=== PATIENT | female | born 1970 | race Caucasian/White ===

== ENCOUNTER 2021-04-02 17:31 | Inpatient (IN) ==
--- NOTE | 2021-04-02 18:33 | XRay Report ---
XR chest 1V portable CLINICAL HISTORY: SOB. COMPARISON STUDY: No previous studies for comparison. TECHNIQUE: 1 view of the chest FINDINGS: Single frontal view of the chest demonstrates the cardiomediastinal silhouette to be within normal li mits. Minimal patchy interstitial and alveolar opacities are present bilaterally, left greater than r ight. The findings are most characteristic of a viral type pneumonitis. Covid 19 pneumonia should be excluded. There is no evidence for pleural effusion. There is no evidence for vascular congestion. Th ere is no acute osseous pathology. IMPRESSION: Minimal patchy interstitial and alveolar opacities bilaterally, left greater than right, characteristic of a viral type pneumonitis and probable early Covid 19 pneumonia. ACT 112: Negative or not required by law. Electronically signed by: Long Lanza M.D. 04/02/2021 6:31 PM
[2021-04-02 19:28] LABS: Basophils # (auto) 0.02 K/uL (0-0.2); Basophils % (auto) 0.3 %; Eosinophils # (auto) 0.03 K/uL (0-0.5); Eosinophils % (auto) 0.4 %; Hemoglobin 14.1 g/dL (12.0-16.0); Immature Granulocytes # (auto) 0.02 K/uL (0.00-0.02); Immature Granulocytes % (auto) 0.3 %; Lymphocytes # (auto) 1.67 K/uL (1.2-3.4); Lymphocytes % (auto) 21.9 %; Mean Corpuscular Hemoglobin 28.5 pg (25-34); Mean Corpuscular Hgb Conc 33.6 g/dL (32-36); Monocytes # (auto) 0.52 K/uL (0.11-0.59); Monocytes % (auto) 6.8 %; Neutrophils # (auto) 5.35 K/uL (1.4-6.5); Neutrophils % (auto) 70.3 %; Platelet Count 272 K/uL (130-400); RDW Coefficient of Variation 14.2 % (11.5-14.5); RDW Standard Deviation 43.5 fL (36.4-46.3); Red Blood Count 4.94 M/uL (4.2-5.4); White Blood Count 7.61 K/uL (4.8-10.8)
--- NOTE | 2021-04-02 19:43 | Emergency Department Note ---
History of Present Illness General Chief complaint: Shortness of Breath/Dyspnea Stated complaint: ABNORMAL LABS Time Seen by Provider: 04/02/21 19:01 History of Present Illness 51-year-old female presents to the ED with a chief complaint of some chest tightness and some shortness of breath that is worse with exertion. She has had the symptoms since Tuesday. The patient first went to a local urgent care and had a positive D-dimer and was sent here for further evaluation. She denies a cough or cold symptoms. She does report a history of PE in the past. Currently not on anticoagulation. No additional complaints this time. Home Medications Medication Instructions Recorded Confirmed Type escitalopram oxalate 10 mg tablet 10 mg PO QPM 04/02/21 04/02/21 History multivitamin 1 tab PO QPM 04/02/21 04/02/21 History pantoprazole 40 mg tablet,delayed 40 mg PO QPM 04/02/21 04/02/21 History release valacyclovir 500 mg tablet 500 mg PO QPM 04/02/21 04/02/21 History Allergies Allergy/AdvReac Type Severity Reaction Status Date / Time No Known Allergies Allergy Unknown Verified 04/02/21 19:28 Past Med/Surg History Social History Smoking Status: Never smoker Preferred Language: Icelandic Feels Safe at Home: Yes Review of Systems A total of 10 systems reviewed and were otherwise negative Physical Exam Vital Signs Vital Signs - 24 hr 04/02/21 17:58 04/02/21 19:10 04/02/21 19:11 Temperature 36.8 C Temperature Source Temporal Artery Scan Pulse Rate 118 H Pulse Rate [Right Finger] Pulse Rate from SpO2 Sensor Pulse Rhythm Regular Pulse Rhythm [Right Finger] Pulse Strength [Right Finger] Respiratory Rate 18 Respiratory Effort / Characteristics Non-Labored Spontaneous Non-Labored Respiratory Depth Normal Respiratory Pattern Blood Pressure 147/88 H Blood Pressure [Right Arm] Blood Pressure Mean 107 Blood Pressure Mean [Right Arm] Blood Pressure Position Sitting Blood Pressure Position [Right Arm] Pulse Oximetry 97 92 Oxygen Delivery Method Room Air Room Air Sepsis Recent Fever Within 48 Hours No Sepsis New/Unexplained Change in Mental Status No Sepsis Action Taken by Nursing No Action Required 04/02/21 19:23 04/02/21 19:40 Temperature Temperature Source Pulse Rate 102 H 100 H Pulse Rate [Right Finger] 107 H Pulse Rate from SpO2 Sensor 98 H Pulse Rhythm Regular Pulse Rhythm [Right Finger] Regular Pulse Strength [Right Finger] Normal Respiratory Rate 18 18 Respiratory Effort / Characteristics Non-Labored Spontaneous Respiratory Depth Normal Respiratory Pattern Regular Blood Pressure 157/104 H Blood Pressure [Right Arm] 167/109 H Blood Pressure Mean 121 Blood Pressure Mean [Right Arm] 128 Blood Pressure Position Blood Pressure Position [Right Arm] Sitting Pulse Oximetry 98 96 Oxygen Delivery Method Room Air Sepsis Recent Fever Within 48 Hours Sepsis New/Unexplained Change in Mental Status Sepsis Action Taken by Nursing CONSTITUTIONAL/VITAL SIGNS: Reviewed / noted above. GENERAL: Non-toxic in appearance. INTEGUMENTARY: Warm, dry, and [place]. HEAD: Normocephalic. EYES: without scleral icterus or trauma. ENT/OROPHARYNX: clear and moist. LYMPHADENOPATHY/NECK: Is supple without lymphadenopathy or meningismus. RESPIRATORY: Clear to auscultation bilaterally. No increased work of breathing. CARDIOVASCULAR: Regular rate and rhythm. GI/ABDOMEN: Soft and nontender. No organomegaly or pulsatile mass. EXTREMITIES: Warm and well perfused. BACK: No CVA tenderness. NEUROLOGICAL: Intact without focal deficits. PSYCHIATRIC: normal affect. MUSCULOSKELETAL: Normally developed with good muscle tone. TRIAGE NURSING DOCUMENTATION REVIEWED. Course Administered Medications Discontinued Medications Acetaminophen (Acetaminophen 325 Mg Tab) 650 mg PO NOW STA Stop: 04/02/21 20:19 Last Admin: 04/02/21 20:28 Dose: 650 mg Documented by: [id number] Ioversol (Optiray 320 125ml) 117 ml IV ONCE ONE Stop: 04/02/21 20:12 Last Admin: 04/02/21 20:12 Dose: 117 ml Documented by: [id number] Critical Care Time Critical Care Time: Yes Total Critical Care Time: 30 I have personally spent 30 minutes of critical care time in the direct management of this patient. This includes bedside care, interpretation of diagnostic studies, and testing, discussion with consultants, patient, and family members, and other required patient management activities. This 30 minutes is in excess of all separately billable procedures. Medical Decision Making Differential Diagnosis The differential that was considered includes acute myocardial infarction, acute coronary syndrome, myocarditis, pericarditis, pericardial effusions /tamponade, esophageal perforation, thoracic aortic dissection, pulmonary embolism, pneumonia, pneumothorax, pancreatitis, shingles, acute cholecystitis, perforated abdominal viscus. Medical Records Attestation: I reviewed the patient's medical records. Home Medications Current Medication List: was personally reviewed by me Laboratory Data Attestation: I reviewed the patient's lab results. Result diagrams: 04/02/21 18:59 04/02/21 18:59 Lab Results 04/02/21 04/02/21 04/02/21 Range/Units 18:59 18:59 18:59 WBC 7.61 (4.8-10.8) K/uL RBC 4.94 (4.2-5.4) M/uL Hgb 14.1 (12.0-16.0) g/dL Hct 42.0 (37-47) % MCV 85.0 (80-100) fL MCH 28.5 (25-34) pg MCHC 33.6 (32-36) g/dL RDW Std Deviation 43.5 (36.4-46.3) fL RDW Coeff of Simone 14.2 (11.5-14.5) % Plt Count 272 (130-400) K/uL MPV 10.0 (7.4-10.4) fL Immature Gran % (Auto) 0.3 % Neut % (Auto) 70.3 % Lymph % (Auto) 21.9 % [place] % (Auto) 6.8 % Eos % (Auto) 0.4 % Baso % (Auto) 0.3 % Neut # (Auto) 5.35 (1.4-6.5) K/uL Lymph # (Auto) 1.67 (1.2-3.4) K/uL [place] # (Auto) 0.52 (0.11-0.59) K/uL Eos # (Auto) 0.03 (0-0.5) K/uL Baso # (Auto) 0.02 (0-0.2) K/uL Immature Gran # (Auto) 0.02 (0.00-0.02) K/uL PT 10.2 (9.0-12.0) Seconds INR 1.0 (0.9-1.1) APTT 25.0 (21.0-31.0) Seconds PTT Ratio 1.0 D-Dimer (0-500) ug/L FEU Sodium 140 (136-145) mmol/L Potassium 3.7 (3.5-5.1) mmol/L Chloride 108 H (98-107) mmol/L Carbon Dioxide 24 (21-32) mmol/L Anion Gap 8.0 (3-11) BUN 11 (7-18) mg/dl Creatinine 0.81 (0.6-1.2) mg/dl Est Cr Clr Drug Dosing 95.1 ml/min Est GFR ( Amer) 98.8 ml/min Est GFR (Non-Af Amer) 85.3 ml/min BUN/Creatinine Ratio 13.1 (10-20) Glucose 97 (70-99) mg/dl Calcium 9.3 (8.5-10.1) mg/dl Magnesium 2.2 (1.8-2.4) mg/dl Total Bilirubin 0.4 (0.2-1) mg/dl AST 44 H (15-37) U/L ALT 61 (12-78) Alkaline Phosphatase 72 (45-117) U/L Troponin I 0.127 H* (0-0.045) ng/ml Total Protein 8.2 (6.4-8.2) gm/dl Albumin 4.3 (3.4-5.0) gm/dl Globulin 3.9 (2.5-4.0) gm/dl Albumin/Globulin Ratio 1.1 (0.9-2) POC Ur Test (NEG) SARS-CoV-2, RNA, NAAT (NEGATIVE) 04/02/21 04/02/21 04/02/21 Range/Units 18:59 19:05 Unknown WBC (4.8-10.8) K/uL RBC (4.2-5.4) M/uL Hgb (12.0-16.0) g/dL Hct (37-47) % MCV (80-100) fL MCH (25-34) pg MCHC (32-36) g/dL RDW Std Deviation (36.4-46.3) fL RDW Coeff of Simone (11.5-14.5) % Plt Count (130-400) K/uL MPV (7.4-10.4) fL Immature Gran % (Auto) % Neut % (Auto) % Lymph % (Auto) % [place] % (Auto) % Eos % (Auto) % Baso % (Auto) % Neut # (Auto) (1.4-6.5) K/uL Lymph # (Auto) (1.2-3.4) K/uL [place] # (Auto) (0.11-0.59) K/uL Eos # (Auto) (0-0.5) K/uL Baso # (Auto) (0-0.2) K/uL Immature Gran # (Auto) (0.00-0.02) K/uL PT (9.0-12.0) Seconds INR (0.9-1.1) APTT (21.0-31.0) Seconds PTT Ratio D-Dimer 3840 H* (0-500) ug/L FEU Sodium (136-145) mmol/L Potassium (3.5-5.1) mmol/L Chloride (98-107) mmol/L Carbon Dioxide (21-32) mmol/L Anion Gap (3-11) BUN (7-18) mg/dl Creatinine (0.6-1.2) mg/dl Est Cr Clr Drug Dosing ml/min Est GFR ( Amer) ml/min Est GFR (Non-Af Amer) ml/min BUN/Creatinine Ratio (10-20) Glucose (70-99) mg/dl Calcium (8.5-10.1) mg/dl Magnesium (1.8-2.4) mg/dl Total Bilirubin (0.2-1) mg/dl AST (15-37) U/L ALT (12-78) Alkaline Phosphatase (45-117) U/L Troponin I (0-0.045) ng/ml Total Protein (6.4-8.2) gm/dl Albumin (3.4-5.0) gm/dl Globulin (2.5-4.0) gm/dl Albumin/Globulin Ratio (0.9-2) POC Ur Test NEG (NEG) SARS-CoV-2, RNA, NAAT NEGATIVE (NEGATIVE) Imaging Data Radiologist's Impression: Chest X-Ray 04/02/21 18:03 XR chest 1V portable CLINICAL HISTORY: SOB. COMPARISON STUDY: No previous studies for comparison. TECHNIQUE: 1 view of the chest FINDINGS: Single frontal view of the chest demonstrates the cardiomediastinal silhouette to be within normal limits. Minimal patchy interstitial and alveolar opacities are present bilaterally, left greater than right. The findings are most characteristic of a viral type pneumonitis. Covid 19 pneumonia should be exclu ded. There is no evidence for pleural effusion. There is no evidence for vascular congestion. There is no acute osseous pathology. IMPRESSION: Minimal patchy interstitial and alveolar opacities bilaterally, left greater than right, characteristic of a viral type pneumonitis and probable early Covid 19 pneumonia. ACT 112: Negative or not required by law. Electronically signed by: Long Lanza M.D. 04/02/2021 6:31 PM Chest CTA 04/02/21 18:32 CT angio chest PE protocol CLINICAL HISTORY: Shortness of breath. Evaluate for pulmonary embolus COMPARISON STUDY: Portable chest from 04/01/2021 CT DOSE: 337.48 mGy.cm TECHNIQUE: CT Angio of the chest was performed.followed by image post processing with coronal, and sagittal MIP reformats. Contrast Volume: Optiray 3 2117 ml FINDINGS: Vasculature: There are large perfusion defects representing pulmonary emboli the distal right main pulmonary artery with extension into the right upper right middle and right lower lobe pulmonary arteries. There is also a large perfusion defect involving the distal left main pulmonary artery with extension into the left upper lobe and left lower lobe pulmonary arteries. Airway: The airway is clear. No endobronchial lesion is identified. Lungs: Compared to the portable chest radiograph, no groundglass opacities are seen bilaterally. The lungs are clear of acute alveolar opacities, air br onchograms or pulmonary nodules. Pleura: There is no evidence for pleural effusion. There is no evidence for pneumothorax. Mediastinum: There is no evidence for pathologic adenopathy. The heart size is within normal limits. There is no evidence for right heart strain. The thoracic aorta is within normal limits. There is no evidence for pericardial effusion. Upper abdomen:The adrenal glands are normal bilaterally. There is fatty infiltration of the liver. Osseous structures: There is no acute osseous pathology. Impression: 1. Large bilateral pulmonary emboli as described above. 2. No evidence for right heart strain. 3. No groundglass opacities or alveolar opacities as suspected radiographically. ACT 112: Negative or not required by law. Electronically signed by: Long Lanza M.D. 04/02/2021 8:30 PM ECG Data Attestation: I personally reviewed and interpreted this ECG as follows: Additional Comments: Twelve-lead EKG: Per my interpretation there is a normal sinus rhythm at a rate of 98. T wave inversions anteriorly. No ST elevation. No PVCs. Normal QTC. Compared to an EKG dated 2007, the T wave inversions are new. MDM Narrative Patient presents with some chest tightness and some shortness of breath is worse with exertion over the past 5 days or so. She has an EKG today that shows a normal sinus rhythm at a rate of 98 with some T wave inversions anteriorly. These appear new from 2007. Her chest x-ray, per radiologist shows a viral appearing infiltrate or pneumonia left greater than right. Covid test was negative. test was negative. CBC was normal. D-dimer was elevated. CT scan of the chest reveals bilateral PEs. No pneumonia. The patient was given some Tylenol for a headache. She was also given IV heparin. She will be seen by the hospitalist for further inpatient evaluation and care. Impression & Plan Bilateral pulmonary embolism, Elevated troponin Discharge Plan Visit Data Chief Complaint: Shortness of Breath/Dyspnea Stated Complaint: ABNORMAL LABS ED Provider: Ariel Bear Discharge Problem: Bilateral pulmonary embolism, Elevated troponin Patient Disposition: Being Evaluated by Hospitalist Forms Stand Alone Forms: [facility], Virtual Emergency Department, Important Visit Information Prescriptions Prescriptions: No Action valacyclovir 500 mg tablet 500 mg PO QPM RF: 0 pantoprazole 40 mg tablet,delayed release (DR/EC) 40 mg PO QPM RF: 0 escitalopram oxalate 10 mg tablet 10 mg PO QPM RF: 0 multivitamin Tablet 1 tab PO QPM RF: 0 Referrals Referrals: Sarah Scott MD [Primary Care Provider] -
[2021-04-02 19:51] LABS: Albumin Level 4.3 gm/dl (3.4-5.0); BUN Creatinine Ratio 13.1 (10-20); Calcium 9.3 mg/dl (8.5-10.1); Creatinine Clr Calc Pharmacy 95.1 ml/min; Est GFR (African American) 98.8 ml/min; Est GFR (Non-African American) 85.3 ml/min; Magnesium 2.2 mg/dl (1.8-2.4); Potassium 3.7 mmol/L (3.5-5.1)
[2021-04-02 19:52] LABS: Prothrombin Time 10.2 Seconds (9.0-12.0)
[2021-04-02 19:59] LABS: Albumin Globulin Ratio 1.1 (0.9-2); Bilirubin,Total 0.4 mg/dl (0.2-1); Globulin 3.9 gm/dl (2.5-4.0); Total Protein 8.2 gm/dl (6.4-8.2); Troponin I 0.127 ng/ml (0-0.045)
[2021-04-02 20:08] LABS: D Dimer 3840 ug/L FEU (0-500)
[2021-04-02] MEDS ORDERED: OPTIRAY 320 125ml IV ONE (20:11)
[2021-04-02] MEDS ORDERED: ASPIRIN CHEW 324 MG PO STA (20:16)
[2021-04-02] MEDS ORDERED: ACETAMINOPHEN 325 MG TAB PO STA (20:18)
[2021-04-02] MEDS ORDERED: Heparin IV Adult Wt-Based Standard WITH Bolus Protocol IV STA (20:19)
[2021-04-02] MEDS ORDERED: ASPIRIN CHEW 324 MG ONE (20:25)
--- NOTE | 2021-04-02 20:31 | CT Scan Report ---
CT angio chest PE protocol CLINICAL HISTORY: Shortness of breath. Evaluate for pulmonary embolus COMPARISON STUDY: Portable chest from 04/01/2021 CT DOSE: 337.48 mGy.cm TECHNIQUE: CT Angio of the chest was performed.followed by image post processing with coronal, and s agittal MIP reformats. Contrast Volume: Optiray 3 2117 ml FINDINGS: Vasculature: There are large perfusion defects representing pulmonary emboli the distal right main pu lmonary artery with extension into the right upper right middle and right lower lobe pulmonary arteri es. There is also a large perfusion defect involving the distal left main pulmonary artery with exten avtar into the left upper lobe and left lower lobe pulmonary arteries. Airway: The airway is clear. No endobronchial lesion is identified. Lungs: Compared to the portable chest radiograph, no groundglass opacities are seen bilaterally. The lungs are clear of acute alveolar opacities, air bronchograms or pulmonary nodules. Pleura: There is no evidence for pleural effusion. There is no evidence for pneumothorax. Mediastinum: There is no evidence for pathologic adenopathy. The heart size is within normal limits. There is no evidence for right heart strain. The thoracic aorta is within normal limits. There is no evidence for pericardial effusion. Upper abdomen:The adrenal glands are normal bilaterally. There is fatty infiltration of the liver. Osseous structures: There is no acute osseous pathology. Impression: 1. Large bilateral pulmonary emboli as described above. 2. No evidence for right heart strain. 3. No groundglass opacities or alveolar opacities as suspected radiographically. ACT 112: Negative or not required by law. Electronically signed by: Long Lanza M.D. 04/02/2021 8:30 PM
[2021-04-02] MEDS ORDERED: HEPARIN SOD (PORCINE) 1000 UNIT/ML IV ONE (20:34)
[2021-04-02] MEDS: HEPARIN SODIUM/DEXTROSE 25,000 UNITS/500 ML BAG IV SCH (21:14)
[2021-04-03] MEDS ORDERED: ONDANSETRON INJ 2 MG/ML 2 ML VIAL IV PRN (00:17)
[2021-04-03] MEDS ORDERED: POLYETHYLENE (MIRALAX) 17 GM PACK PO PRN (00:17)
[2021-04-03] MEDS ORDERED: SODIUM CHLORIDE 0.9% 1000ML 1,000 ML IV SCH (00:17)
[2021-04-03] MEDS ORDERED: NITROGLYCERIN SL 0.4 MG/TAB TAB SL PRN (00:17)
--- NOTE | 2021-04-03 01:09 | History and Physical Report ---
DATE OF ADMISSION: 04/02/2021. CHIEF COMPLAINT: Shortness of breath. HISTORY OF PRESENT ILLNESS: A 51-year-old female with past medical history significant for herpes simplex vulvovaginitis, history of melanoma in situ, history of PE 16 years ago, who presents with shortness of breath. The patient says since last weekend, she is noting shortness of breath. Today it got worse and she came to the hospital and workup showed bilateral pulmonary embolism. She is saturating okay on room air, hemodynamically stable. D-dimer was 3840 and troponin was 0.127. Currently resting comfortably and hemodynamically stable. Denies any chest pain. Had some mild headache, no blurred visions, no earache, no runny nose, no sore throat, no cough. Appetite is okay. Was nauseous earlier. No abdominal pain. Had three episodes of diarrhea today, but that is resolved. Normal bladder movements. No hematuria, no blood in stool or black stools. No swelling in the legs, no leg pain. Otherwise, she ambulates and doing okay. The patient says 16 years ago she was diagnosed with PE. At that time, the workup was negative and she states it happened after cholecystectomy and it was thought to be possibly from surgery or possibly from her control pills, but she did fine and 4 years later when she was , she took shots to prevent any blood clots, but she never had blood clots after that one episode. Denies any family history of blood clots. She is COVID vaccinated with Jayesh and Jayesh COVID vaccine on 07/05/2020. ALLERGIES: No known drug allergies. PAST MEDICAL HISTORY: As mentioned above. PAST SURGICAL HISTORY: , removal of melanoma from left leg, ligation of the oviducts, cholecystectomy, removal of the cervix cone with loop electrode. MEDICATIONS: The patient is on Lexapro 10 mg p.o. daily, multivitamins 1 tablet p.o. daily, Protonix 40 mg p.o. a.m., valacyclovir 500 mg p.o. daily. FAMILY HISTORY: Significant for mother has dementia; father has hyperlipidemia, hypertension; mother has stroke; sister has thyroid disorder; paternal grandfather had heart disorder. SOCIAL HISTORY: No smoking, alcohol rare, no drug use. REVIEW OF SYSTEMS: As per HPI. Rest of the review of systems is negative. PHYSICAL EXAMINATION: GENERAL: The patient is of moderate build, not in acute distress. VITAL SIGNS: Temperature 36.8, pulse 92, respiratory rate 18, blood pressure 127/99, oxygen 98% on room air. HEENT: Pupils equal, round, and reactive to light. Oral mucosa moist. NECK: No JVD, no neck masses. CARDIOVASCULAR: S1 and S2 heard. Regular rate and rhythm. No murmur, no gallop. RESPIRATORY SYSTEM: Normal AP diameter. No accessory muscle use. No wheezing, no crackles. ABDOMEN: Soft, bowel sounds present, nontender, no distention. CENTRAL NERVOUS SYSTEM: Cranial nerves II-XII grossly intact, nonfocal. EXTREMITIES: No edema, no erythema. LABORATORY DATA: WBC 7.6, hemoglobin 14.1, hematocrit 42, platelets 272. PT 10.2, INR 1, APTT 25, D-dimer of 3840. Sodium 140, potassium 3.7, chloride 108, bicarbonate 24, BUN 11, creatinine 0.8, serum glucose 97, calcium 9.3, magnesium 2.2, total bilirubin 0.4, AST 44, ALT 61, alkaline phosphatase 72. Troponin 1 of 0.127. Urine test negative. SARS-CoV-2 RNA negative. IMAGING DATA: Chest x-ray, minimal patchy interstitial alveolar opacities bilaterally, left greater than right, characteristics of viral pneumonitis and probably early COVID-[address] pneumonia, [address] CT of the chest shows large bilateral pulmonary emboli. No evidence for right heart strain, no ground-glass opacities, alveolar opacities as suspected radiographically. EKG: possible ectopic atrial tachycardia to 101. Nonspecific T-wave abnormalities in inferior leads and T-wave inversions in anterior leads. ASSESSMENT AND PLAN: This is a 51-year-old female who presents with shortness of breath, found to have bilateral pulmonary embolism. 1. Bilateral pulmonary embolism: History of pulmonary embolism 16 years ago, started on IV heparin. No right heart strain on the CT of the chest, but she has mild elevation of troponin and EKG changes. Will follow serial enzymes, echo. Consult cardiology. If required, will consult pulmonary. Closely monitor in the med tele. 2. Mild elevation of troponin and EKG changes, could be from pulmonary embolism. Serial CE. Will follow echocardiogram and consult cardiology for further recommendation. Will keep n.p.o. after midnight. 3. History of gastroesophageal reflux disease: Continue Protonix. 4. History of herpes simplex vulvovaginitis: Continue her valacyclovir. 5. Deep venous thrombosis prophylaxis: On IV heparin. DISPOSITION: Closely monitor in the med tele. PT/OT prior to discharge. Social service to help with discharge planning. Job ID: [id number] MTDD
[2021-04-03 03:57] LABS: Basophils # (auto) 0.02 K/uL (0-0.2); Basophils % (auto) 0.3 %; Eosinophils # (auto) 0.04 K/uL (0-0.5); Eosinophils % (auto) 0.6 %; Hematocrit (blood only) 39.3 % (37-47); Hemoglobin 12.8 g/dL (12.0-16.0); Immature Granulocytes # (auto) 0.02 K/uL (0.00-0.02); Immature Granulocytes % (auto) 0.3 %; Lymphocytes # (auto) 2.44 K/uL (1.2-3.4); Lymphocytes % (auto) 37.4 %; Mean Corpuscular Hgb Conc 32.6 g/dL (32-36); Mean Platelet Volume 9.8 fL (7.4-10.4); Monocytes # (auto) 0.46 K/uL (0.11-0.59); Neutrophils # (auto) 3.55 K/uL (1.4-6.5); Neutrophils % (auto) 54.4 %; Platelet Count 246 K/uL (130-400); RDW Coefficient of Variation 14.4 % (11.5-14.5); RDW Standard Deviation 44.4 fL (36.4-46.3); Red Blood Count 4.57 M/uL (4.2-5.4); White Blood Count 6.53 K/uL (4.8-10.8)
[2021-04-03 04:15] LABS: BUN Creatinine Ratio 12.2 (10-20); Calcium 9.2 mg/dl (8.5-10.1); Creatinine Clr Calc Pharmacy 105.3 ml/min; Est GFR (African American) 112.1 ml/min; Est GFR (Non-African American) 96.7 ml/min; Potassium 3.5 mmol/L (3.5-5.1)
[2021-04-03 04:24] LABS: Troponin I 0.048 ng/ml (0-0.045)
[2021-04-03 04:27] LABS: Partial Thromboplastin Time 53.8 Seconds (21.0-31.0)
[2021-04-03] MEDS ORDERED: POTASSIUM CHLORIDE CRTAB 20 MEQ TABCR PO STA (06:50)
--- NOTE | 2021-04-03 09:20 | Ultrasound Report ---
US venous doppler LE BI CLINICAL HISTORY: Bilateral partially swelling with bilateral pulmonary emboli COMPARISON: None available at the time of this dictation. TECHNIQUE: Bilateral lower extremity real-time compression venous ultrasound with Color Doppler imagi ng. Utilizing real-time ultrasonic imaging multiple real time high-resolution ultrasonic images with comp ression and noncompression maneuvers of the deep venous system in addition to color doppler imaging w ere performed from the common femoral vein through the proximal calf veins. FINDINGS: On the right side, there is normal compressibility of the deep venous system from the common femoral vein through the proximal calf veins. No current evidence of acute thrombosis is identified. However, on the left side, the deep venous system of the common femoral, superficial femoral and popl iteal veins are patent. There is evidence for thrombus within the posterior tibial veins. Impression: Evidence for thrombus within the posterior tibial veins of the left calf. The remaining veins are pat ent bilaterally. ACT 112: Negative or not required by law. Electronically signed by: Long Lanza M.D. 04/03/2021 9:18 AM
--- NOTE | 2021-04-03 10:32 | Cardiology Consultation ---
Date of Consultation April 03, 2021 Assessment & Plan (1) Bilateral pulmonary embolism: (2) Elevated troponin: (3) Right ventricular dilation: (4) Abnormal EK51 year old female admitted with chest tightness and shortness of breath, workup revealing thrombus within the posterior tibial veins and large bilateral pulmonary emboli with evidence of RV strain on resting echocardiography likely accounting for the electrocardiographic changes and the mildly elevated troponin. Patient hemodynamically stable; normotensive, saturating 95% on room air at rest, without arrhythmia thus far. Patient is being treated with IV heparin, likely for up to 48 hours then transitioned to a DOAC. Recommend hypercoagulable workup, evaluation of hereditary and acquire factors, certainly evaluation for malignancy. History of Present Illness Reason for Consultation: EKG changes, elevated troponin, PE Requesting Physician: Akash Attending Physician: Ton History of Present Illness Ms. Lorena Montero is a very pleasant 51 year old female with a history of bilateral PE circa 16 years ago, occurring a few days after cholecystectomy and while on control pills. She recalls spending a week in the hospital and taking Coumadin anticoagulation for six months. At that time her symptoms were severe tightness in the chest, back pain, and dyspnea. She recalls using Lovenox for the last 8 weeks of her and 6 weeks after delivery without DVT/PE at that time. One week ago she noticed some tightness in the left calf and ignored it. Thereafter she began to experience dyspnea when carrying the laundry up the stairs prior to developing chest tightness. She notes typically being able to ride her bike for 20 miles without difficulty. Yesterday, she was evaluated at [facility] and was referred for laboratory work which revealed an elevated D-dimer and an elevated troponin. She was subsequently referred to the [facility] ER. Initial imaging included a chest x-ray which reportedly revealed minimal patchy interstitial and alveolar opacities bilaterally, left greater than right, characteristic of a viral type pneumonitis and probable early Covid 19 pneumonia. Covid testing in the ER was negative. CTA of the chest revealed large bilateral pulmonary emboli in the distal right main pulmonary artery with extension into the right upper right middle and right lower lobe pulmonary arteries and distal left main pulmonary artery with extension into the left uppe r lobe and left lower lobe pulmonary arteries with no evidence for right heart strain and no ground glass opacities or alveolar opacities as suspected radiographically. Venous doppler this morning reveals evidence for thrombus within the posterior tibial veins of the left calf. EKG on 02-APR-2021 at 19:24:50 revealed normal sinus rhythm at 98 bpm with left axis deviation, anterior T wave abnormality, and a QTc of 487 ms. Troponin I's are as follows: 0.146, 0.127, and 0.048 with a fourth Troponin pending. Resting echocardiography reveals a moderately dilated RV with moderate diffuse RV hypokinesis with sparing of the RV apex consistent with PE with RV strain. Blood pressure was hypertensive on presentation with a high of 167/109. No documented hypotension. Continuous telemetry monitoring. No recent surgery. No recurrent trauma. No prolonged immobility (traveled to [place], [place] recently). No contraceptive use. No hormone replacement therapy. No prior cardiac history. She specifically denies history of CAD, AL, CHF, arrhythmia, heart murmur, rheumatic fever, or scarlet fever. No palpitations. No orthopnea or PND. No dizziness or syncope. No bleeding history. Past Medical and Surgical History: History of bilateral pulmonary emboli 16 years ago, less than one week following cholecystectomy, in the setting of control use. Melanoma in situ, left lateral leg Gestational diabetes Herpes simplex vulvovaginitis section Bilateral partial salpingectomy Family History: Mother is alive at 73. She had a CVA at the age of 71 and has dementia. Father is alive at 74 with hypertension and hyperlipidemia. Paternal grandfather and great grandfather with CAD in their 50's/60's. Social History: Nonsmoker. Rare alcohol. No illegal drug use. . 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 Two children ages 13 and 15, one of which was adopted. Complete Review of Systems: Constitutional: No fevers, night sweats, chills. HEENT: Glasses. No amaurosis fugax. Pulmonary: See above. Cardiac: See above. GI/Abd: GERD. No melana or hematochezia. Denies liver or kidney problems. Vascular: Denies history of claudication, AAA, or carotid artery disease. Hematologic: See above. No abnormal bleeding. Musculoskeletal: Hip pain. Skin: See above. Neurologic: No history of TIA, CVA, or seizure. Female : See above. Endocrine: No DM or thyroid problems. Complete Review of Systems is as stated above, negative, or noncontributory. Allergies Allergy/AdvReac Type Severity Reaction Status Date / Time No Known Allergies Allergy Unknown Verified 04/02/21 19:28 Home Medications Medication Instructions Recorded Confirmed Type escitalopram oxalate 10 mg tablet 10 mg PO QPM 04/02/21 04/02/21 History multivitamin 1 tab PO QPM 04/02/21 04/02/21 History pantoprazole 40 mg tablet,delayed 40 mg PO QPM 04/02/21 04/02/21 History release valacyclovir 500 mg tablet 500 mg PO QPM 04/02/21 04/02/21 History apixaban 5 mg (74 tabs) tablets in 5 mg PO BID #74 ea 04/03/21 Rx a dose pack (Eliquis) Patient History Social History Smoking Status: Never smoker Hx Alcohol Use: No Hx Substance Use: No Preferred Language: Mozambican Communication Ability: Effective Beliefs That Will Affect Care: None Current Living Situation: Family Current Living Situation Comment: Lives in multilevel home with 2 daughters Feels Safe at Home: Yes Safety Concerns: Feels Safe At This Time Assistive Devices: None Physical Exam Physical Exam: General: A&Ox3. NAD. HENT: Normocephalic. Atraumatic. Eyes: PER. Conjunctiva pink, sclera clear. Neck: No JVD. Heart: RRR, 90 bpm. No murmur. No rub. Lungs: Clear to auscultation. Abdomen: +BS. Extremities: No clubbing, cyanosis, or edema. Limited neurological examination is without focal deficits. Pulses: Posterior tibial=2/4. Results & Data ([facility]) Vital Signs (Past 12 Hours) Vital Signs Temp Pulse Pulse Resp BP BP Pulse Ox 04/03/21 07:27 36.6 C 83 18 124/85 95 04/03/21 07:00 81 04/03/21 00:17 84 04/03/21 00:08 36.5 C 94 H 17 138/96 93 04/02/21 23:00 78 16 123/88 95 Laboratory Results Laboratory Results - last 24 hr 04/02/21 04/02/21 04/02/21 18:59 18:59 18:59 WBC 7.61 RBC 4.94 Hgb 14.1 Hct 42.0 MCV 85.0 MCH 28.5 MCHC 33.6 RDW Std Deviation 43.5 RDW Coeff of Simone 14.2 Plt Count 272 MPV 10.0 Immature Gran % (Auto) 0.3 Neut % (Auto) 70.3 Lymph % (Auto) 21.9 Hamilton % (Auto) 6.8 Eos % (Auto) 0.4 Baso % (Auto) 0.3 Neut # (Auto) 5.35 Lymph # (Auto) 1.67 Hamilton # (Auto) 0.52 Eos # (Auto) 0.03 Baso # (Auto) 0.02 Immature Gran # (Auto) 0.02 PT 10.2 INR 1.0 APTT 25.0 PTT Ratio 1.0 D-Dimer Sodium 140 Potassium 3.7 Chloride 108 H Carbon Dioxide 24 Anion Gap 8.0 BUN 11 Creatinine 0.81 Est Cr Clr Drug Dosing 95.1 Est GFR ( Amer) 98.8 Est GFR (Non-Af Amer) 85.3 BUN/Creatinine Ratio 13.1 Glucose 97 Calcium 9.3 Magnesium 2.2 Total Bilirubin 0.4 AST 44 H ALT 61 Alkaline Phosphatase 72 Troponin I 0.127 H* Total Protein 8.2 Albumin 4.3 Globulin 3.9 Albumin/Globulin Ratio 1.1 POC Ur Test SARS-CoV-2, RNA, NAAT 04/02/21 04/02/21 04/02/21 18:59 19:05 Unknown WBC RBC Hgb Hct MCV MCH MCHC RDW Std Deviation RDW Coeff of Simone Plt Count MPV Immature Gran % (Auto) Neut % (Auto) Lymph % (Auto) Hamilton % (Auto) Eos % (Auto) Baso % (Auto) Neut # (Auto) Lymph # (Auto) Hamilton # (Auto) Eos # (Auto) Baso # (Auto) Immature Gran # (Auto) PT INR APTT PTT Ratio D-Dimer 3840 H* Sodium Potassium Chloride Carbon Dioxide Anion Gap BUN Creatinine Est Cr Clr Drug Dosing Est GFR ( Amer) Est GFR (Non-Af Amer) BUN/Creatinine Ratio Glucose Calcium Magnesium Total Bilirubin AST ALT Alkaline Phosphatase Troponin I Total Protein Albumin Globulin Albumin/Globulin Ratio POC Ur Test NEG SARS-CoV-2, RNA, NAAT NEGATIVE 04/03/21 04/03/21 04/03/21 03:42 03:42 03:42 WBC 6.53 RBC 4.57 Hgb 12.8 Hct 39.3 MCV 86.0 MCH 28.0 MCHC 32.6 RDW Std Deviation 44.4 RDW Coeff of Simone 14.4 Plt Count 246 MPV 9.8 Immature Gran % (Auto) 0.3 Neut % (Auto) 54.4 Lymph % (Auto) 37.4 Hamilton % (Auto) 7.0 Eos % (Auto) 0.6 Baso % (Auto) 0.3 Neut # (Auto) 3.55 Lymph # (Auto) 2.44 Hamilton # (Auto) 0.46 Eos # (Auto) 0.04 Baso # (Auto) 0.02 Immature Gran # (Auto) 0.02 PT INR APTT 53.8 H* PTT Ratio 2.0 D-Dimer Sodium 139 Potassium 3.5 Chloride 109 H Carbon Dioxide 24 Anion Gap 6.0 BUN 9 Creatinine 0.73 Est Cr Clr Drug Dosing 105.3 Est GFR ( Amer) 112.1 Est GFR (Non-Af Amer) 96.7 BUN/Creatinine Ratio 12.2 Glucose 114 H Calcium 9.2 Magnesium 2.0 Total Bilirubin AST ALT Alkaline Phosphatase Troponin I 0.048 H* Total Protein Albumin Globulin Albumin/Globulin Ratio POC Ur Test SARS-CoV-2, RNA, NAAT 04/03/21 10:37 WBC RBC Hgb Hct MCV MCH MCHC RDW Std Deviation RDW Coeff of Simone Plt Count MPV Immature Gran % (Auto) Neut % (Auto) Lymph % (Auto) Hamilton % (Auto) Eos % (Auto) Baso % (Auto) Neut # (Auto) Lymph # (Auto) Hamilton # (Auto) Eos # (Auto) Baso # (Auto) Immature Gran # (Auto) PT INR APTT PTT Ratio D-Dimer Sodium Potassium Chloride Carbon Dioxide Anion Gap BUN Creatinine Est Cr Clr Drug Dosing Est GFR ( Amer) Est GFR (Non-Af Amer) BUN/Creatinine Ratio Glucose Calcium Magnesium Total Bilirubin AST ALT Alkaline Phosphatase Troponin I 0.023 Total Protein Albumin Globulin Albumin/Globulin Ratio POC Ur Test SARS-CoV-2, RNA, NAAT Diagnostic Findings November 11, 2014 [facility] Negative exercise stress echo for ischemia at 94% MPHR. Negative exercise stress EKG for ischemia at 94% MPHR April 03, 2021 TTE Interpretation Summary ([facility], Dr. Prince): Normal LV wall thickness. Normal LV wall motion. EF 55-60%. Moderately dilated RV, with moderate diffuse RV hypokinesis with sparing of the RV apex consistent with PE w ith RV strain. No tricuspid regurgitation. No doppler evidence of pulmonary hypertension. Compared to the prior study of 2015, the RV chamber enlargement and hypokinesis is new. Telemetry: Sinus in the 80's and 90's, with occasional unifocal PVC's overnight. No SVT, atrial fibrillation, atrial flutter, bradycardia, pauses, or high degree AV block. Addendum April 03, 2021 12:10 Supervising Physician Attestation: I have personally performed a history and physical examination on the patient. I agree with the physician visitor services information assistant's findings and plan as documented with the following additions. Subjective: Patient without subjective complaints, resting comfortably at the time of my assessment. Telemetry reveals sinus rhythm in the 80s to 90s. Exam: Lungs clear to auscultation bilaterally No lower extremity edema Data: EKG performed 04/03/2021 at 1131 reveals normal sinus rhythm 85 bpm, poor R wave progression noted in lead V3, T wave inversions noted in the precordial leads V2, V3. Assessment and Plan: Bilateral pulmonary embolism Left calf posterior tibial vein thrombus -Believe the patient's mild troponin elevation, T wave inversions in the septal leads, and echocardiogram findings of new moderate right ventricular chamber dilatation with moderate diffuse RV hypokinesis that spares the RV apex neuro consistent with pulmonary embolism with right ventricular strain. Fortunately, patient is hemodynamically stable, with normal blood pressure, oxygen saturation 95% on room air. Recommend ongoing heparin infusion for 48hrs prior to consideration of direct oral anticoagulant given the degree of thrombus burden appreciated on CT. Previous PE took place in setting of OCP use and recent surgical procedure and she recalls completing 1 year of anticoagulaiton. No family h/o thrombophilia. Recommend drawing labs for inherited hypercoagulable work up including Factor V Leiden mutation, Prothrombin gen mutation, homocysteine, Protein C and S, beta 2 glycoprotein IgG and IgM and cardiolipin Abs. Juno Prince, DO
--- NOTE | 2021-04-03 12:56 | Hospitalist Progress Note ---
Date of Service April 03, 2021 Assessment & Plan (1) Bilateral pulmonary embolism: Plan: Acute bilateral PE with evidence of right heart strain on echocardiogram. There are large perfusion defects representing pulmonary emboli in the right and left upper and lower lobes. Patient is denying any chest pain or shortness of breath. Reports symptoms for the last week and some dyspnea on exertion. Would expect this to improve with treatment. No clear provoking etiology with hypercoagulable work-up pending. Recommend follow-up with a suggestion clerk as outpatient. Notably no family history of blood clots and patient is not adopted. No clear association with meds or [id number] collagen supplementation. Prior blood clot appeared to be provoked in postoperative state. With the amount of thrombus burden we will continue heparin drip for 48 hours before conversion to NOAC. This should provide anti-inflammatory effect. (2) Elevated troponin: Plan: Secondary to thrombus burden from PE. Patient denies chest pain. No further cardiac work-up. (3) HSV infection: Plan: Continue daily Valtrex per home regimen. (4) Depression: Plan: Chronic, stable, continue daily Lexapro per home regimen. (5) GERD (gastroesophageal reflux disease): Plan: Chronic, stable, continue daily PPI per home regimen. (6) DVT prophylaxis: Plan: Heparin drip Full code Disposition-to home likely 1 to 2 days [facility] Admission and Anticipated Discharge Date Admission Date: April 02, 2021 Results & Data Results & Data ([facility]) Vital Signs (Past 12 Hours) Vital Signs Temp Pulse Pulse Resp BP Pulse Ox 04/03/21 11:00 36.8 C 87 18 122/77 95 04/03/21 07:27 36.6 C 83 18 124/85 95 04/03/21 07:00 81 Laboratory Results Short CBC 04/02/21 04/03/21 Range/Units 18:59 03:42 WBC 7.61 6.53 (4.8-10.8) K/uL Hgb 14.1 12.8 (12.0-16.0) g/dL Hct 42.0 39.3 (37-47) % Plt Count 272 246 (130-400) K/uL BMP 04/02/21 04/03/21 18:59 03:42 Sodium 140 139 Potassium 3.7 3.5 Chloride 108 H 109 H Carbon Dioxide 24 24 BUN 11 9 Creatinine 0.81 0.73 Glucose 97 114 H Calcium 9.3 9.2 Cardiac Enzymes 04/02/21 04/03/21 04/03/21 Range/Units 18:59 03:42 10:37 Troponin I 0.127 H* 0.048 H* 0.023 (0-0.045) ng/ml Liver Function 04/02/21 Range/Units 18:59 Total Bilirubin 0.4 (0.2-1) mg/dl AST 44 H (15-37) U/L ALT 61 (12-78) Alkaline Phosphatase 72 (45-117) U/L Albumin 4.3 (3.4-5.0) gm/dl Diagnostic Findings Venous Doppler Study 04/03/21 06:16 US venous doppler LE BI CLINICAL HISTORY: Bilateral partially swelling with bilateral pulmonary emboli COMPARISON: None available at the time of this dictation. TECHNIQUE: Bilateral lower extremity real-time compression venous ultrasound with Color Doppler imaging. Utilizing real-time ultrasonic imaging multiple real time high-resolution ultrasonic images with compression and noncompression maneuvers of the deep venous system in addition to color doppler imaging were performed from the common femoral vein through the proximal calf veins. FINDINGS: On the right side, there is normal compressibility of the deep venous system from the common femoral vein through the proximal calf veins. No current evidence of acute thrombosis is identified. However, on the left side, the deep venous system of the common femoral, superficial femoral and popliteal veins are patent. There is evidence for thrombus within the posterior tibial veins. Impression: Evidence for thrombus within the posterior tibial veins of the left calf. The remaining veins are patent bilaterally. ACT 112: Negative or not required by law. Electronically signed by: Long Lanza M.D. 04/03/2021 9:18 AM Medications Administered Current Inpatient Medications Acetaminophen (Acetaminophen 325 Mg Tab) 650 mg PO Q4H PRN PRN Reason: Pain or Fever Stop: 05/03/21 00:16 Escitalopram Oxalate (Escitalopram Oxalate 10 Mg Tab) 10 mg PO QPM [facility] Stop: 05/03/21 20:59 Heparin Sodium/Dextrose (Heparin Sodium/Dextrose) 25,000 units in 500 mls @ 26 mls/hr IV .[id number] [facility]; Protocol Stop: 05/02/21 20:44 Last Titration: 04/03/21 06:51 Dose: 1,300 units/hr, 26 mls/hr Documented by: Multivitamins (Multivitamin Tab) 1 tab PO QPM SWATI Stop: 05/03/21 20:59 Nitroglycerin (Nitroglycerin Sl 0.4 Mg/Tab Tab) 0.4 mg SL UD PRN PRN Reason: Chest Pain Stop: 05/03/21 00:16 Ondansetron HCl (Ondansetron Inj 2 Mg/Ml 2 Ml Vial) 4 mg IV Q6H PRN PRN Reason: Nausea Stop: 05/03/21 00:16 Pantoprazole Sodium (Pantoprazole 40 Mg Tab) 40 mg PO QPM SWATI Stop: 05/03/21 20:59 Polyethylene Glycol (Polyethylene (Miralax) 17 Gm Pack) 17 gm PO DAILY PRN PRN Reason: Constipation Stop: 05/03/21 00:16 Valacyclovir HCl (Valacyclovir Hcl 500 Mg Tablet) 500 mg PO QPM SWATI Stop: 05/03/21 20:59
--- NOTE | 2021-04-03 14:54 | Electrocardiogram Report ---
Test Reason : Blood Pressure : / mmHG Vent. Rate : 101 BPM Atrial Rate : 101 BPM P-R Int : 184 ms QRS Dur : 086 ms QT Int : 372 ms P-R-T Axes : 151 -27 141 degrees QTc Int : 482 ms Sinus tachycardia Inferior infarct , age undetermined Abnormal ECG When compared with ECG of 08-JUL-2007 15:12, Nonspecific T wave abnormality now evident in Inferior leads T wave inversion now evident in Anterior leads Confirmed by Carl Pino ([id number]) on 04/03/2021 2:54:23 PM Referred By: Sarah Scott Confirmed By:Carl Pino
--- NOTE | 2021-04-03 14:55 | Electrocardiogram Report ---
Test Reason : Blood Pressure : / mmHG Vent. Rate : 098 BPM Atrial Rate : 098 BPM P-R Int : 186 ms QRS Dur : 088 ms QT Int : 382 ms P-R-T Axes : 058 -58 058 degrees QTc Int : 487 ms Normal sinus rhythm Left axis deviation T wave abnormality, consider anterior ischemia Abnormal ECG 02-APR-2021 18:56, (unconfirmed) Nonspecific T wave abnormality, improved in Inferior leads Confirmed by Carl Pino ([id number]) on 04/03/2021 2:55:22 PM Referred By: Sarah Scott Confirmed By:Carl Pino
--- NOTE | 2021-04-03 15:17 | Electrocardiogram Report ---
Test Reason : Blood Pressure : / mmHG Vent. Rate : 085 BPM Atrial Rate : 085 BPM P-R Int : 186 ms QRS Dur : 082 ms QT Int : 416 ms P-R-T Axes : 061 -55 027 degrees QTc Int : 495 ms Normal sinus rhythm Left axis deviation T wave abnormality, consider anterior ischemia Abnormal ECG When compared with ECG of 02-APR-2021 19:24, (unconfirmed) No significant change was found Confirmed by Carl Pino ([id number]) on 04/03/2021 3:16:53 PM Referred By: Sarah Scott Confirmed By:Carl Pino
[2021-04-03] MEDS: HEPARIN SODIUM/DEXTROSE 25,000 UNITS/500 ML BAG IV SCH (17:30)
[2021-04-03] MEDS: ACETAMINOPHEN 325 MG TAB PO PRN ×2 (17:32→21:39)
[2021-04-03] MEDS: valACYclovir HCL 500 MG TABLET PO SCH (20:39)
[2021-04-03] MEDS: MULTIVITAMIN TAB PO SCH (20:39)
[2021-04-03] MEDS: ESCITALOPRAM OXALATE 10 MG TAB PO SCH (20:39)
[2021-04-03] MEDS: PANTOprazole 40 MG TAB PO SCH (20:40)
[2021-04-04] MEDS: ACETAMINOPHEN 325 MG TAB PO PRN (06:12)
[2021-04-04 07:14] LABS: Hematocrit (blood only) 40.1 % (37-47); Hemoglobin 13.1 g/dL (12.0-16.0); Mean Corpuscular Hemoglobin 28.3 pg (25-34); Mean Corpuscular Hgb Conc 32.7 g/dL (32-36); Mean Corpuscular Volume 86.6 fL (80-100); Mean Platelet Volume 9.8 fL (7.4-10.4); Platelet Count 248 K/uL (130-400); RDW Coefficient of Variation 14.4 % (11.5-14.5); RDW Standard Deviation 45.3 fL (36.4-46.3); Red Blood Count 4.63 M/uL (4.2-5.4); White Blood Count 7.53 K/uL (4.8-10.8)
[2021-04-04 07:24] LABS: Partial Thromboplastin Ratio 1.7; Partial Thromboplastin Time 43.9 Seconds (21.0-31.0)
[2021-04-04 07:35] LABS: BUN Creatinine Ratio 14.7 (10-20); Calcium 8.8 mg/dl (8.5-10.1); Creatinine Clr Calc Pharmacy 105.3 ml/min; Est GFR (African American) 112.1 ml/min; Est GFR (Non-African American) 96.7 ml/min; Potassium 3.8 mmol/L (3.5-5.1)
--- NOTE | 2021-04-04 09:10 | Hospitalist Progress Note ---
Date of Service April 04, 2021 Assessment & Plan (1) Bilateral pulmonary embolism: Plan: Acute bilateral PE with evidence of right heart strain on echocardiogram. There are large perfusion defects representing pulmonary emboli in the right and left upper and lower lobes. Patient is denying any chest pain or shortness of breath. No clear provoking etiology with hypercoagulable work-up pending. Prior blood clot appeared to be provoked in postoperative state. With the amount of thrombus burden we will continue heparin drip for 48 hours to stop tonight before conversion to eliquis. Educated patient on need for hematology outpatient follow up and routine malignancy screening including colonoscopy (2) Elevated troponin: Plan: Secondary to thrombus burden from PE. Patient denies chest pain. No further cardiac work-up. (3) HSV infection: Plan: Continue daily Valtrex per home regimen. (4) Depression: Plan: Chronic, stable, continue daily Lexapro per home regimen. (5) GERD (gastroesophageal reflux disease): Plan: Chronic, stable, continue daily PPI per home regimen. (6) DVT prophylaxis: Plan: Heparin drip Full code Plan to DC in AM Admission and Anticipated Discharge Date Admission Date: April 02, 2021 Subjective 51-year-old woman with history of 16 years ago, melanoma in situ who presented with shortness of breath Found to have Bilateral PE Patient seen and examined this morning. Denies any chest pain, cough, shortness of breath Denies any palpitations Denies any fevers, chills, nausea, vomiting Denies abdominal pain, diarrhea constipation Physical Exam Constitutional: + well hydrated; no acute distress Eyes: PERRL, conjunctivae normal, anicteric sclerae ENMT: external ear and nose normal, oropharynx normal Respiratory: normal respiratory effort, lungs clear to auscultation Cardiovascular: RRR, no murmur, no edema Gastrointestinal (Abdomen): normal bowel sounds, soft, nontender, no hepatosplenomegaly Musculoskeletal: no cyanosis or clubbing, extremities motor strength 5/5 Neurologic: PERRL, EOMI, accommodation nl, no face palsy, no dysarthria Psychiatric: A+Ox3, euthymic affect Results & Data Results & Data ([facility]) Vital Signs (Past 12 Hours) Vital Signs Temp Pulse Pulse Resp BP Pulse Ox 04/04/21 06:41 36.4 C L 81 18 145/80 H 95 04/04/21 02:12 36.6 C 81 18 123/73 95 04/04/21 02:09 73 04/03/21 22:14 36.5 C 80 18 151/89 H 95 Laboratory Results Abnormal lab results 04/04/21 04/04/21 Range/Units 06:52 06:52 APTT 43.9 H (21.0-31.0) Seconds Chloride 110 H (98-107) mmol/L Glucose 129 H (70-99) mg/dl
--- NOTE | 2021-04-04 10:38 | Electrocardiogram Report ---
Test Reason : Blood Pressure : / mmHG Vent. Rate : 088 BPM Atrial Rate : 088 BPM P-R Int : 182 ms QRS Dur : 084 ms QT Int : 414 ms P-R-T Axes : 063 -60 040 degrees QTc Int : 500 ms Normal sinus rhythm Left anterior fascicular block T wave abnormality, consider anterior ischemia Prolonged QT Abnormal ECG When compared with ECG of 03-APR-2021 11:31, Nonspecific ST abnormality now in the inferolateral leads Confirmed by Bobo Keys ([id number]) on 04/04/2021 10:38:13 AM Referred By: Sarah Scott Confirmed By:Bobo Keys
[2021-04-04] MEDS: HEPARIN SODIUM/DEXTROSE 25,000 UNITS/500 ML BAG IV SCH ×2 (11:38→17:45)
[2021-04-04 16:15] LABS: Partial Thromboplastin Ratio 1.5; Partial Thromboplastin Time 40.3 Seconds (21.0-31.0)
[2021-04-04] MEDS: valACYclovir HCL 500 MG TABLET PO SCH (20:38)
[2021-04-04] MEDS: MULTIVITAMIN TAB PO SCH (20:39)
[2021-04-04] MEDS: APIXABAN 5 MG TABLET PO SCH (20:39)
[2021-04-04] MEDS: PANTOprazole 40 MG TAB PO SCH (20:40)
[2021-04-04] MEDS: ESCITALOPRAM OXALATE 10 MG TAB PO SCH (20:40)
[2021-04-04 22:58] LABS: Partial Thromboplastin Ratio 1.1; Partial Thromboplastin Time 27.9 Seconds (21.0-31.0)
[2021-04-05 08:11] LABS: Hematocrit (blood only) 39.7 % (37-47); Hemoglobin 12.9 g/dL (12.0-16.0); Mean Corpuscular Hemoglobin 27.8 pg (25-34); Mean Corpuscular Hgb Conc 32.5 g/dL (32-36); Mean Corpuscular Volume 85.6 fL (80-100); Mean Platelet Volume 9.6 fL (7.4-10.4); Platelet Count 228 K/uL (130-400); RDW Coefficient of Variation 14.3 % (11.5-14.5); RDW Standard Deviation 44.5 fL (36.4-46.3); Red Blood Count 4.64 M/uL (4.2-5.4); White Blood Count 5.75 K/uL (4.8-10.8)
[2021-04-05] MEDS: APIXABAN 5 MG TABLET PO SCH (08:32)
[2021-04-05 08:44] LABS: BUN Creatinine Ratio 13.6 (10-20); Creatinine Clr Calc Pharmacy 103.6 ml/min; Est GFR (African American) 110.3 ml/min; Est GFR (Non-African American) 95.1 ml/min; Potassium 3.9 mmol/L (3.5-5.1)
--- NOTE | 2021-04-05 11:36 | Discharge Summary ---
Date of Service April 05, 2021 Admission HPI Per Admitting Provider A 51-year-old female with past medical history significant for herpes simplex vulvovaginitis, history of melanoma in situ, history of PE 16 years ago, who presents with shortness of breath. The patient says since last weekend, she is noting shortness of breath. Today it got worse and she came to the hospital and workup showed bilateral pulmonary embolism. She is saturating okay on room air, hemodynamically stable. D-dimer was 3840 and troponin was 0.127. Currently resting comfortably and hemodynamically stable. Denies any chest pain. Had some mild headache, no blurred visions, no earache, no runny nose, no sore throat, no cough. Appetite is okay. Was nauseous earlier. No abdominal pain. Had three episodes of diarrhea today, but that is resolved. Normal bladder movements. No hematuria, no blood in stool or black stools. No swelling in the legs, no leg pain. Otherwise, she ambulates and doing okay. The patient says 16 years ago she was diagnosed with PE. At that time, the workup was negative and she states it happened after cholecystectomy and it was thought to be possibly from surgery or possibly from her control pills, but she did fine and 4 years later when she was , she took shots to prevent any blood clots, but she never had blood clots after that one episode. Denies any family history of blood clots. She is COVID vaccinated with Jayesh and Jayesh COVID vaccine on 07/05/2020. Admission Exam Per Admitting Provider GENERAL: The patient is of moderate build, not in acute distress. VITAL SIGNS: Temperature 36.8, pulse 92, respiratory rate 18, blood pressure 127/99, oxygen 98% on room air. HEENT: Pupils equal, round, and reactive to light. Oral mucosa moist. NECK: No JVD, no neck masses. CARDIOVASCULAR: S1 and S2 heard. Regular rate and rhythm. No murmur, no gallop. RESPIRATORY SYSTEM: Normal AP diameter. No accessory muscle use. No wheezing, no crackles. ABDOMEN: Soft, bowel sounds present, nontender, no distention. CENTRAL NERVOUS SYSTEM: Cranial nerves II-XII grossly intact, nonfocal. EXTREMITIES: No edema, no erythema. Principal Diagnosis Bilateral pulmonary embolism Deep venous thrombosis of the left lower extremity Discharge Exam Constitutional + well hydrated; no acute distress Eyes PERRL, conjunctivae normal, anicteric sclerae ENMT external ear and nose normal, oropharynx normal Respiratory normal respiratory effort, lungs clear to auscultation Cardiovascular RRR, no murmur, no edema Gastrointestinal (Abdomen) normal bowel sounds, soft, nontender, no hepatosplenomegaly Musculoskeletal no cyanosis or clubbing, extremities motor strength 5/5 Neurologic PERRL, EOMI, accommodation nl, no face palsy, no dysarthria Psychiatric A+Ox3, euthymic affect Discharge Data Allergies Allergy/AdvReac Type Severity Reaction Status Date / Time No Known Allergies Allergy Unknown Verified 04/02/21 19:28 Consultations 04/02/21 20:43 ED Decision to Admit Stat 04/03/21 08:00 Consult Cardiology Routine Ordered Studies 04/02/21 18:32 CT angio chest PE protocol Stat Vasculature: There are large perfusion defects representing pulmonary emboli the distal right main pulmonary artery with extension into the right upper right middle and right lower lobe pulmonary arteries. There is also a large perfusion defect involving the distal left main pulmonary artery with extension into the left upper lobe and left lower lobe pulmonary arteries. Airway: The airway is clear. No endobronchial lesion is identified. Lungs: Compared to the portable chest radiograph, no groundglass opacities are seen bilaterally. The lungs are clear of acute alveolar opacities, air bronchograms or pulmonary nodules. Pleura: There is no evidence for pleural effusion. There is no evidence for pneumothorax. Mediastinum: There is no evidence for pathologic adenopathy. The heart size is within normal limits. There is no evidence for right heart strain. The thoracic aorta is within normal limits. There is no evidence for pericardial effusion. Upper abdomen:The adrenal glands are normal bilaterally. There is fatty infiltration of the liver. Osseous structures: There is no acute osseous pathology. Impression: 1. Large bilateral pulmonary emboli as described above. 2. No evidence for right heart strain. 3. No groundglass opacities or alveolar opacities as suspected radiographically. 04/03/21 06:16 US venous doppler LE BI Urgent On the right side, there is normal compressibility of the deep venous system from the common femoral vein through the proximal calf veins. No current evidence of acute thrombosis is identified. However, on the left side, the deep venous system of the common femoral, superficial femoral and popliteal veins are patent. There is evidence for thrombus within the posterior tibial veins. Impression: Evidence for thrombus within the posterior tibial veins of the left calf. The remaining veins are patent bilaterally. Hospital Course (1) Bilateral pulmonary embolism: Acute bilateral PE with evidence of right heart strain on echocardiogram. There are large perfusion defects representing pulmonary emboli in the right and left upper and lower lobes. Patient is denying any chest pain or shortness of breath. No clear provoking etiology with hypercoagulable work-up pending. Prior blood clot appeared to be provoked in postoperative state. With the amount of thrombus burden she was treated with heparin drip for 48 hours then transitioned to eliquis last night Educated patient on need for hematology outpatient follow up and routine malignancy screening including colonoscopy (2) Elevated troponin: Secondary to thrombus burden from PE. Patient denies chest pain. No further cardiac work-up. Echo showed normal EF 55-60%, RV is moderately dilated, moderate diffuse RV hypokinesis with sparing RV apex consistent with PE with RV strain pattern. No TR. No Doppler evidence of pulm HTN. (3) HSV infection: Continue daily Valtrex per home regimen. (4) Depression: Chronic, stable, continue daily Lexapro per home regimen. (5) GERD (gastroesophageal reflux disease): Chronic, stable, continue daily PPI per home regimen. Total Time Total Time Spent Total Time Spent (In Minutes): 40 Discharge Plan Discharge Items Patient Disposition: Home - Self-Care Reason For Visit: Shortness of breath Discharge Diagnosis: Bilateral pulmonary embolism Deep venous thrombosis of the left lower extremity Activity: Resume your previous activity Non-emergency contact: Primary Care Provider Call non-emergency contact if: you have any medication questions and your symptoms worsen Follow-up/Referrals: Sarah Scott MD [Primary Care Provider] - (Date & Time 04/08/2021 11:00 AM Provider Sarah Scott MD Department Family Practice [facility] ) Diet: Heart Healthy Addtl Attending Provider Instructions: Mrs Montero You came to the hospital complaining of shortness of breath. You were evaluated and found to have blood clots in both lungs [pulmonary embolism] and left leg You were started on blood thinners and you are being discharged on blood thinner called apixaban. Please take 10mg of apixaban twice daily for 1 week and then 5mg twice daily afterwards. You will likely need to be on blood thinners life long. It is very important that you follow-up with director service for further work-up as this is your second pulmonary embolism. Please ensure follow-up with your primary doctor It was a pleasure taking care of you Pending Studies at Discharge: No Stand-Alone Forms: My [facility], Smoking Cessation Medications and DC Order Prescriptions: New Eliquis 5 mg (74 tabs) tablets,dose pack 5 mg PO BID Qty: 74 RF: 0 Continued valacyclovir 500 mg tablet 500 mg PO QPM RF: 0 pantoprazole 40 mg tablet,delayed release (DR/EC) 40 mg PO QPM RF: 0 escitalopram oxalate 10 mg tablet 10 mg PO QPM RF: 0 multivitamin Tablet 1 tab PO QPM RF: 0 Discharge Orders: Discharge Order (Routine); Ordered 04/05/21 Ordered By: Nohemi Flores/Other Patient Handouts: Pulmonary Embolism, Using Blood Thinners (Anticoagulants) Admission Data Admit Date/Time: 04/02/21 22:38 Attending Provider: Nohemi Moore I. Admit Provider: Isra Bustos Primary Care Provider: Sarah Scott Other Providers: Isra Bustos ; Juno Prince ; Seble Camilo Other Interventions: Discharge Summary Assessment (RN) Last Done: 04/05/21 11:52
== END 2021-04-05 14:45 | disposition home or self-care (01) | DRG 299 ==
LOC: ED 17:31 → SUATTDRO 22:38 → EDINP 22:38 → 2N 04-03 00:07